=== PATIENT | female | born 1980 ===

== ENCOUNTER 2016-11-01 09:35 | Emergency (ER) | payer OTHER ==
[2016-11-01 09:36] VITALS: BMI 23.3
[2016-11-01 10:56] LABS: RBC URINE 20 /hpf (0-3); URINE BILIRUBIN NEGATIVE (NEGATIVE); URINE BLOOD 3+ (NEGATIVE); URINE COLOR Yellow (YELLOW); URINE GLUCOSE (UA) NORMAL (Normal); URINE KETONE NEGATIVE (NEGATIVE); URINE LEUKOCYTE ESTERASE TRACE Leu/uL (Negative); URINE PROTEIN NEGATIVE (NEGATIVE); URINE UROBILINOGEN NORMAL mg/dL (0.2-1.0); WBC URINE 8 /hpf (0-5)
[2016-11-01 11:20] LABS: BASO % 0.6 % (0.0-2.0); EOS % 0.4 % (0.0-4.0); HEMATOCRIT 38.8 % (34.0-47.0); LYMPH # 1.8 K/uL (1.0-4.3); LYMPH % 31.9 % (20.0-40.0); MEAN CELL VOLUME 85.1 fL (81.0-99.0); MEAN CORPUSCULAR HEMOGLOBIN 27.9 pg (27.0-31.0); MEAN CORPUSCULAR HGB CONC 32.8 g/dL (33.0-37.0); MEAN PLATELET VOLUME 8.1 fL (7.2-11.7); MONO # 0.4 K/uL (0.0-0.8); MONO % 6.3 % (0.0-10.0); RED CELL DISTRIBUTION WIDTH 14.8 % (11.5-14.5); WHITE BLOOD COUNT 5.6 K/uL (4.8-10.8)
[2016-11-01 11:22] LABS: CHLORIDE 102 mmol/L (98-107)
[2016-11-01 11:23] LABS: POTASSIUM 4.3 mmol/L (3.6-5.2); SODIUM 137 mmol/L (132-148)
[2016-11-01 11:25] LABS: ALB/GLOB RATIO 1.2 (1.0-2.1); ALKALINE PHOSPHATASE 95 U/L (38-126); AST/SGOT 25 U/L (14-36); BILIRUBIN,TOTAL 0.6 mg/dL (0.2-1.3); BLOOD UREA NITROGEN 14 mg/dL (7-17); CARBON DIOXIDE 27 mmol/L (22-30); GFR AFRICAN-AMERICAN > 60; GLUCOSE,RANDOM 90 mg/dL (65-105); TOTAL PROTEIN 7.6 g/dL (6.3-8.3)
[2016-11-01 11:26] LABS: ALT/SGPT 23 U/L (9-52); CALCIUM 8.7 mg/dl (8.6-10.4)
--- NOTE | 2016-11-01 14:22 | C.PDOC ---
History Of Present Illness 36 year old female and 5 weeks pregnany - LMP was 09/18/2016 presents to the ED with complaints of vaginal bleeding and pain since yesterday. Patient denies any nausea, vomiting, or other complaints at this time. 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) History/Exam Limitations: language barrier Onset/Duration Of Symptoms: Days Current Symptoms Are (Timing): Still Present Quality Of Discomfort: "Pain" Associated Symptoms: denies: Fever, Chills, Nausea, Vomiting, Diarrhea, Loss Of Appetite Recent travel outside of the [place]: No Abnormal Vaginal Bleeding: Yes Last Menstral Period: 09/18/2016 : 3 Para: 2 Past Medical History Reviewed: Historical Data, Nursing Documentation, Vital Signs Vital Signs: Last Vital Signs Temp 97.9 F 11/01/16 14:37 Pulse 65 11/01/16 14:37 Resp 20 11/01/16 14:37 BP 101/66 11/01/16 14:37 Pulse Ox 99 11/01/16 17:24 - Medical History PMH: Hypothyroidism Surgical History: - [facility] Procedures LOW CERVICAL (08/01/14) Family History: States: Unknown Family Hx - Social History Hx Tobacco Use: No Hx Alcohol Use: No Hx Substance Use: No - Immunization History Hx Tetanus Toxoid Vaccination: No Hx Influenza Vaccination: No Hx Pneumococcal Vaccination: No Review Of Systems Constitutional: Negative for: Fever, Chills, Sweats Cardiovascular: Negative for: Chest Pain, Palpitations Respiratory: Negative for: Cough, Shortness of Breath Gastrointestinal: Negative for: Nausea, Vomiting, Abdominal Pain, Diarrhea Genitourinary: Positive for: Vaginal Bleeding, Pelvic Pain. Negative for: Dysuria, Frequency, Hematuria Physical Exam - Physical Exam Appears: Non-toxic, No Acute Distress Skin: Warm, Dry Head: Atraumatic Eye(s): bilateral: PERRL, EOMI Nose: Normal Oral Mucosa: Moist Neck: Normal ROM, Supple Chest: Symmetrical, No Deformity Cardiovascular: Rhythm Regular Respiratory: Normal Breath Sounds, No Rales, No Rhonchi, No Stridor, No Wheezing Gastrointestinal/Abdominal: Soft, Tenderness (suprapubic tenderness), No Distention, No Guarding, No Rebound Extremity: Normal ROM, No Tenderness Neurological/Psych: Oriented x3 ED Course And Treatment - Laboratory Results Result Diagrams: 11/01/16 11:00 11/01/16 11:00 O2 Sat by Pulse Oximetry: 99 (room air ) Progress Note: Patient seen and evaluated by Dr. Chairez who instructs 80 mg of Methotrexate IM. Discussed with patient findings of ultrasound and reason for giving Methotrexate and patient agrees. [place] Hardware Installer was used to ensure understanding. Patient was instructed to have a repeat evaluation on and Tuesday. Disposition - Disposition Referrals: [facility] at [facility] [Outside] Disposition: HOME/ ROUTINE Disposition Time: 14:42 Condition: GOOD Additional Instructions: Return to ER on and on Tuesday for repeat Beta HCG. Follow up with clinic in 1-2 days for further evaluation. Return to ER if symtpoms persist or worsen. Do not take vitamins. Instructions: Ectopic (ED) Print Language: FAROESE - Clinical Impression Clinical Impression: Ectopic - Scribe Statement The provider has reviewed the documentation as recorded by the Scribe Naty Castellanos All medical record entries made by the Scribe were at my direction and personally dictated by me. I have reviewed the chart and agree that the record accurately reflects my personal performance of the history, physical exam, medical decision making, and the department course for this patient. I have also personally directed, reviewed, and agree with the discharge instructions and disposition.
[2016-11-01 14:38] VITALS: BP 101/66; PULSE 65; RESP 20; TEMP 97.9
--- NOTE | 2016-11-01 14:39 | US ---
HISTORY: preg pain COMPARISON: None available. TECHNIQUE: FINDINGS: UTERUS: Measures 3.8 x 5.4 x 8 cm. Normal in size and appearance. No fibroid or other mass lesion seen. ENDOMETRIUM: Measures 6.2 mm in diameter. Saclike structure/ decidual reaction within the endometrial canal. Fluid identified as well. CERVIX: No cervical abnormality identified. RIGHT OVARY: Measures 1.5 x 2.6 cm. No solid mass. Normal flow. LEFT OVARY: Measures 1 x 1.7 cm. Saclike structure, yolk sac identified left adnexa consistent with left ectopic gestation. Increased vascularity to the area of interest left adnexa. FREE FLUID: No significant free fluid noted. OTHER FINDINGS: None. IMPRESSION: Evidence of left ectopic gestation, decidual reaction within the endometrium. Critical results protocol study completed at 13:45. Results provided verbally to 13:31. Verbal results provided to health Care personnel Nurse involved in the care and management this individual(MONAE)
[2016-11-01] MEDS ORDERED: Methotrexate 50 mg/2 ml Inj IM STA (14:44)
[2016-11-01 14:45] VITALS: O2SAT 99
[2016-11-01] MEDS ORDERED: Methotrexate 50 mg/2 ml Inj IM ONE ×2 (15:15)
--- NOTE | 2016-11-01 16:32 | CP.PCM.CON ---
History of Present Illness - History of Present Illness History of Present Illness: Reason for consult-vaginal bleeding HPI 36 y/o with lmo 09/18/2016, presents to ed with c/o vaginal bleeding and pelvic pain.patient states that she has bleeding foralst 3 days.recently found out that she si .Patient reports mild pelvic discomfort.Denies nausea, vomiting, headache, chest pain, shortness of breath Review of Systems - Review of Systems All systems: reviewed and no additional remarkable complaints except - Gastrointestinal Gastrointestinal: Abdominal Pain - Reproductive: Female Reproductive:Female: Abnormal Vaginal Bleeding Past Patient History - Tetanus Immunizations Tetanus Immunization: Unknown - Past Medical History & Family History Past Medical History?: Yes - Past Social History Smoking Status: Never Smoked - PULMONARY Hx Respiratory Disorders: No - NEUROLOGICAL Hx Neurological Disorder: No - HEENT Hx HEENT Problems: No - RENAL Hx Chronic Kidney Disease: No - ENDOCRINE/METABOLIC Hx Hypothyroidism: Yes - HEMATOLOGICAL/ONCOLOGICAL Hx Blood Disorders: No - INTEGUMENTARY Hx Dermatological Problems: No - MUSCULOSKELETAL/RHEUMATOLOGICAL Hx Musculoskeletal Disorders: No Hx Falls: No - GASTROINTESTINAL Hx Gastrointestinal Disorders: No - GENITOURINARY/GYNECOLOGICAL Hx Genitourinary Disorders: No - PSYCHIATRIC Hx Substance Use: No - SURGICAL HISTORY Hx Section: Yes (x 2) - ANESTHESIA Hx Anesthesia: Yes Hx Anesthesia Reactions: No Hx Malignant Hyperthermia: No Meds Allergies/Adverse Reactions: Allergies Allergy/AdvReac Type Severity Reaction Status Date / Time No Known Allergies Allergy Verified 11/01/16 09:40 Results - Vital Signs Recent Vital Signs: Last Vital Signs Temp 97.9 F 11/01/16 14:37 Pulse 65 11/01/16 14:37 Resp 20 11/01/16 14:37 BP 101/66 11/01/16 14:37 Pulse Ox 99 11/01/16 16:13 - Labs Result Diagrams: 11/01/16 11:00 11/01/16 11:00 Labs: Laboratory Results - last 24 hr 11/01/16 11/01/16 11/01/16 10:54 11:00 11:00 WBC 5.6 RBC 4.56 Hgb 12.7 Hct 38.8 MCV 85.1 MCH 27.9 MCHC 32.8 L RDW 14.8 H Plt Count 263 MPV 8.1 Neut % (Auto) 60.8 Lymph % (Auto) 31.9 [place] % (Auto) 6.3 Eos % (Auto) 0.4 Baso % (Auto) 0.6 Neut # 3.4 Lymph # 1.8 [place] # 0.4 Eos # 0.0 Baso # 0.0 Sodium 137 Potassium 4.3 Chloride 102 Carbon Dioxide 27 Anion Gap 12 BUN 14 Creatinine 0.6 L Est GFR ( Amer) > 60 Est GFR (Non-Af Amer) > 60 Random Glucose 90 Calcium 8.7 Total Bilirubin 0.6 AST 25 ALT 23 Alkaline Phosphatase 95 Total Protein 7.6 Albumin 4.1 Globulin 3.5 Albumin/Globulin Ratio 1.2 Beta HCG, Quant 20.07 Urine Color Yellow Urine Clarity Clear Urine pH 6.0 Ur Specific Louann 1.015 Urine Protein Negative Urine Glucose (UA) Normal Urine Ketones Negative Urine Blood 3+ H Urine Nitrate Negative Urine Bilirubin Negative Urine Urobilinogen Normal Ur Leukocyte Esterase Trace Urine WBC (Auto) 8 H Urine RBC (Auto) 20 H Ur Squamous Epith Cells 4 Urine HCG, Qual Negative Blood Type Antibody Screen 11/01/16 11:00 WBC RBC Hgb Hct MCV MCH MCHC RDW Plt Count MPV Neut % (Auto) Lymph % (Auto) [place] % (Auto) Eos % (Auto) Baso % (Auto) Neut # Lymph # [place] # Eos # Baso # Sodium Potassium Chloride Carbon Dioxide Anion Gap BUN Creatinine Est GFR ( Amer) Est GFR (Non-Af Amer) Random Glucose Calcium Total Bilirubin AST ALT Alkaline Phosphatase Total Protein Albumin Globulin Albumin/Globulin Ratio Beta HCG, Quant Urine Color Urine Clarity Urine pH Ur Specific [place] Urine Protein Urine Glucose (UA) Urine Ketones Urine Blood Urine Nitrate Urine Bilirubin Urine Urobilinogen Ur Leukocyte Esterase Urine WBC (Auto) Urine RBC (Auto) Ur Squamous Epith Cells Urine HCG, Qual Blood Type O POSITIVE Antibody Screen Negative Assessment & Plan (1) Ectopic Assessment and Plan: 36 y/o female presents to ed with c/o pelvic pain and bleeding.ultrasound done which shows left ectopic with decidual reaction in endometrium.findings discussed with patient and discussed that bhcg below 1500 and hence iup cannot be ruled out.Discussed medical versus surgical management.reviewed with patient that if medical management chosen she would need to ascertain that bhcg continues to drop and have a repeat ultrasound.discussed side effects of methotrexate.Patient states that she understands the findings and desires to proceed with methotrexatae. Give methotrexatae 50mg/m2imx1 now.repeat bhcg on and then tuesday to evaluate for the 15 % decline.patient advised to be on pelvic rest.patient given rupture precautions.patient will follow up in [facility] at [facility] Status: Acute
== END 2016-11-01 15:59 | disposition home or self-care (01) ==
LOC: C.ER 09:35
DX: O00.90 Unspecified ectopic pregnancy without intrauterine pregnancy (principal)
CPT/HCPCS: 76830; 80053; 81001; 84702; 84703; 85025; 86850; 86900; 87086; 87181; 96372; 99284; J9250

== ENCOUNTER 2016-11-04 15:40 | Emergency (ER) | payer OTHER ==
[2016-11-04 15:47] VITALS: BMI 24.7
--- NOTE | 2016-11-04 16:38 | C.PDOC ---
History Of Present Illness 36 year old female and 5 weeks - LMP was 09/18/2016 presents to the ED for scheduled re-evaluation after was seen here in ED on 11/01/16 and diagnosed with ectopic . As per OB note , who evaluated pt in ED , pt preferred medical tx and dose of Methotrexate was given on 11/01/16. Pt was instructed to return to in on 11/04/16 to repeat beta quant. At the time of evaluation, pt denies fever, chills, abd. pain, N/V, denies vaginal bleeding. Pt reports, " developed bleeding after was medicated here in ED that last for 2 days". Asymptomatic at present time. Ambulate to ED for evaluation, not in any apparent distress. Time Seen by Provider: 11/04/16 16:03 Chief Complaint (Nursing): Medical Clearance History Per: Patient History/Exam Limitations: no limitations Onset/Duration Of Symptoms: Days Past Medical History Reviewed: Historical Data, Nursing Documentation, Vital Signs Vital Signs: Last Vital Signs Temp 98.9 F 11/04/16 18:29 Pulse 61 11/04/16 18:29 Resp 16 11/04/16 18:29 BP 100/62 11/04/16 18:29 Pulse Ox 100 11/04/16 18:29 - Medical History PMH: Hypothyroidism Surgical History: - [facility] Procedures LOW CERVICAL (08/01/14) Family History: States: No Known Family Hx - Social History Hx Tobacco Use: No Hx Alcohol Use: No Hx Substance Use: No - Immunization History Hx Tetanus Toxoid Vaccination: No Hx Influenza Vaccination: No Hx Pneumococcal Vaccination: No Review Of Systems Except As Marked, All Systems Reviewed And Found Negative. Constitutional: Negative for: Fever, Chills ENT: Negative for: Throat Pain Gastrointestinal: Negative for: Nausea, Vomiting, Abdominal Pain Genitourinary: Negative for: Vaginal Bleeding Musculoskeletal: Negative for: Back Pain Neurological: Negative for: Weakness, Numbness, Altered Mental Status, Dizziness Physical Exam - Physical Exam Appears: Well, Non-toxic, No Acute Distress Skin: Normal Color, Warm Nose: No Discharge Oral Mucosa: Moist Throat: No Erythema, No Exudate, No Drooling Neck: Supple Cardiovascular: Rhythm Regular Respiratory: No Stridor, No Wheezing Gastrointestinal/Abdominal: Soft, No Tenderness, No Distention, No Guarding Back: No CVA Tenderness Extremity: No Pedal Edema Neurological/Psych: Oriented x3, Normal Speech ED Course And Treatment O2 Sat by Pulse Oximetry: 99 Pulse Ox Interpretation: Normal - CT Scan/US US - Transvaginal Other Rad Studies (CT/US): Read By Radiologist, Radiology Report Reviewed, U/S Performed By Dc CT/US Interpretation: Accession No. : [id number]. Patient Name / ID : MATIAS PARR / [id number]. Exam Date : 11/04/2016 17:38:18 ( Approved ). Study Comment : Sex / Age : F / 36Y. Creator : Nai Mansfiedl MD. Dictator : Nai Mansfield MD. Panel Machine Operator : Event Promotions Coordinator : Nai Mansfield MD. Approver2 : Report Date : 11/04/2016 18:09:51. My Comment : . Indication: Ectopic . Comparison: Transvaginal pelvic ultrasound performed 11/01/16. Technique: Transvaginal pelvic ultrasound. Findings: The uterus measures approximately 7.7 x 3.3 x 4.8 cm. Anteverted. Endometrium measures approximately 3 mm. Trace fluid within the endometrium. No evidence of intrauterine gestational sac. The right ovary measures 2.4 x 1.3 x 2.0 cm. The left ovary measures 2.1 x 0.9 x 2.1 cm. Blood flow was demonstrated to both ovaries. Complex mass re-identified within the left adnexa measuring approximately 1.8 x 1.2 x 1.5 cm. Impression: Complex mass re-identified within the left adnexa measuring approximately 1.8 x 1.2 x 1.5 cm ; suspected to reflect ectopic gestation. Correlate clinically. Progress Note: beta quant from 11/01/16 was 20.07. Blood type O positive AB negative. Today beta quant is 7. Transvaginal US results review. case discussed with OB on-call , no further testing and treatment recommend. Pt was instructed return to Ed in 3 days to repeat beta quant again. Pt was instructed return to ED at any time if any fever, abd. pain, vaginal bleeidng or any other active complaints. Pt understand and stabe for discharge now. Medical Decision Making Medical Decision Making: PLAN: * US - Transvaginal * BETA Quant Disposition Counseled Patient/Family Regarding: Studies Performed, Diagnosis - Disposition Disposition: HOME/ ROUTINE Disposition Time: 17:06 Condition: STABLE Additional Instructions: RETURN TO ED SCHEDULED ON 11/06/16 TO REPEAT BETA QUANT AND US. RETURN TO ED AT ANY TIME IF ANY WORSENING OR NEW CHANGES. Instructions: Ectopic (ED) Print Language: WOLOF - Clinical Impression Clinical Impression: Ectopic - PA / INSURANCE VERIFICATION REP / Resident Statement MD/DO has reviewed & agrees with the documentation as recorded. - Scribe Statement The provider has reviewed the documentation as recorded by the Scribe Pat Vasquez All medical record entries made by the Nasrinibjono were at my direction and personally dictated by me. I have reviewed the chart and agree that the record accurately reflects my personal performance of the history, physical exam, medical decision making, and the department course for this patient. I have also personally directed, reviewed, and agree with the discharge instructions and disposition.
--- NOTE | 2016-11-04 18:11 | US ---
Indication: Ectopic Comparison: Transvaginal pelvic ultrasound performed 11/01/16 Technique: Transvaginal pelvic ultrasound Findings: The uterus measures approximately 7.7 x 3.3 x 4.8 cm. Anteverted. Endometrium measures approximately 3 mm. Trace fluid within the endometrium. No evidence of intrauterine gestational sac. The right ovary measures 2.4 x 1.3 x 2.0 cm. The left ovary measures 2.1 x 0.9 x 2.1 cm. Blood flow was demonstrated to both ovaries. Complex mass re-identified within the left adnexa measuring approximately 1.8 x 1.2 x 1.5 cm. Impression: Complex mass re-identified within the left adnexa measuring approximately 1.8 x 1.2 x 1.5 cm ; suspected to reflect ectopic gestation. Correlate clinically.
[2016-11-04 18:32] VITALS: BP 100/62; PULSE 61; RESP 16; TEMP 98.9
[2016-11-05 12:36] VITALS: O2SAT 99
== END 2016-11-04 18:33 | disposition home or self-care (01) ==
LOC: C.ER 15:40
DX: O00.90 Unspecified ectopic pregnancy without intrauterine pregnancy (principal); Z3A.01 Less than 8 weeks gestation of pregnancy

== ENCOUNTER 2016-11-07 19:09 | Emergency (ER) | payer SELFPAY ==
[2016-11-07 19:10] VITALS: BMI 24.7
[2016-11-07 19:19] VITALS: TEMP 98.1; O2SAT 99
--- NOTE | 2016-11-07 20:17 | C.PDOC ---
History Of Present Illness 36 y/o female presents to the ED for repeat beta-HCG. Pt seen initially 11/01 diagnosed ectopic , beta 20, started on methotrexate. Pt seen again on 11/04, beta 7. Pt here for final beta-HCG check and evaluation. Denies abdominal pain, vaginal bleeding or any other complaints. Time Seen by Provider: 11/07/16 19:54 Chief Complaint (Nursing): Medical Clearance History Per: Patient History/Exam Limitations: no limitations Severity: None Reports Recently: Seen In ED Recent travel outside of the [place]: No Past Medical History Reviewed: Historical Data, Nursing Documentation, Vital Signs Vital Signs: Last Vital Signs Temp 98.1 F 11/07/16 19:14 Pulse 72 11/07/16 20:48 Resp 18 11/07/16 20:48 BP 110/69 11/07/16 20:48 Pulse Ox 99 11/07/16 20:49 - Medical History PMH: Hypothyroidism Surgical History: - [facility] Procedures LOW CERVICAL (08/01/14) Family History: States: Unknown Family Hx - Social History Hx Tobacco Use: No Hx Alcohol Use: No Hx Substance Use: No - Immunization History Hx Tetanus Toxoid Vaccination: No Hx Influenza Vaccination: No Hx Pneumococcal Vaccination: No Review Of Systems Except As Marked, All Systems Reviewed And Found Negative. Constitutional: Negative for: Fever, Chills Gastrointestinal: Negative for: Vomiting, Abdominal Pain Genitourinary: Negative for: Vaginal Bleeding Physical Exam - Physical Exam Appears: Non-toxic, No Acute Distress Skin: Warm, Dry, No Rash Head: Atraumatic, Normacephalic Chest: Symmetrical Cardiovascular: Rhythm Regular, No Murmur Respiratory: Normal Breath Sounds, No Rales, No Rhonchi, No Wheezing Gastrointestinal/Abdominal: Normal Exam, Soft, No Tenderness Extremity: Bilateral: Atraumatic Neurological/Psych: Oriented x3 ED Course And Treatment O2 Sat by Pulse Oximetry: 99 (room air) Pulse Ox Interpretation: Normal Medical Decision Making Medical Decision Making: Repeat beta today 5.[address] Ward, pt may be discharged and f/u in clinic in one week. Disposition Counseled Patient/Family Regarding: Diagnosis, Need For Followup - Disposition Referrals: [facility] [Outside] [facility] [Outside] Disposition: HOME/ ROUTINE Disposition Time: 20:47 Condition: STABLE Additional Instructions: Follow up with Medical/Sand Mill [facility] in one week. call for an appointment and ask for [facility]UDIT[facility] clinic. Return to ER for any severe abdominal pain, dizziness, lightheadedness, vaginal bleeding or any other concerns. Instructions: Ectopic (ED) Forms: Gen Discharge Inst Macedonian Print Language: MALIAN - Clinical Impression Clinical Impression: Ectopic - PA / MEDICAID SPECIALIST / Resident Statement MD/DO has reviewed & agrees with the documentation as recorded. - Scribe Statement The provider has reviewed the documentation as recorded by the Scribjono Rocha All medical record entries made by the Nasrinibjono were at my direction and personally dictated by me. I have reviewed the chart and agree that the record accurately reflects my personal performance of the history, physical exam, medical decision making, and the department course for this patient. I have also personally directed, reviewed, and agree with the discharge instructions and disposition.
[2016-11-07 20:49] VITALS: BP 110/69; PULSE 72; RESP 18
== END 2016-11-07 20:52 | disposition home or self-care (01) ==
LOC: C.ER 19:09
DX: O00.90 Unspecified ectopic pregnancy without intrauterine pregnancy (principal)